=== PATIENT | female | born 1985 ===

== ENCOUNTER 2021-01-03 01:12 | Emergency (ER) | payer MEDICAID ==
[~2021-01-03] VITALS: Ht 165.1 cm; Wt 117.2 kg
--- NOTE | 2021-01-03 01:20 | NUR ---
EKG DONE IN TRIAGE.
--- NOTE | 2021-01-03 01:31 | NUR ---
pt presents to ed with c/o SOB and cough for a couple days. pt denies CP. pt a&o, resps even and rapid, nadn.
--- NOTE | 2021-01-03 01:37 | NUR ---
covid test swabbed and walked to lab at this time.
--- NOTE | 2021-01-03 02:09 | NUR ---
PIV placed, all monitors attached, vinin.
--- NOTE | 2021-01-03 02:24 | NUR ---
REPORT RECIEVED FROM [facility]
[2021-01-03 02:38] LABS: ALBUMIN 1.9 g/dL (3.4-5.0); ANION GAP 8 mmol/L (5-15); CALCIUM 7.8 mg/dL (8.5-10.1); CHLORIDE 111 mmol/L (98-107); CREATININE 1.16 mg/dL (0.55-1.02)
--- NOTE | 2021-01-03 02:44 | NUR ---
[facility] NEG. RADIOLOGY NOTIFIED.
--- NOTE | 2021-01-03 02:48 | NUR ---
PATIENT REFUSING TO HAVE CBC RE-DRAWN. PROVIDER NOTIFIED. PATIENT SITTING ON [place]. JETHRO AT THIS TIME.
--- NOTE | 2021-01-03 02:49 | NUR ---
PATIENT TO CT.
[2021-01-03] MEDS ORDERED: OMNIPAQUE 350 MG/ML, 75ML BOTTLE ONE (03:03)
[2021-01-03 03:17] LABS: BASOPHILS % (AUTO) 2 % (0-1); EOSINOPHILS % (AUTO) 0 % (1-7); LYMPHOCYTES % (AUTO) 27 % (22-44); MEAN CORPUSCULAR HEMOGLOBIN 25.7 pg (27.0-34.8); MEAN CORPUSCULAR HGB CONC 31.4 g/dL (32.4-35.8); MONOCYTES % (AUTO) 7 % (2-9); NEUTROPHILS % (AUTO) 64 % (42-75); PLATELET COUNT 258 x10^3/uL (130-400); RED BLOOD COUNT 5.66 x10^6/uL (3.82-5.3); RED CELL DISTRIBUTION WIDTH 17.7 % (9.6-15.2)
--- NOTE | 2021-01-03 03:46 | NUR ---
PATIENT SITTING ON JETHRO JONES AT THIS TIME, VSS, WILL CONTINUE TO MONITOR.
[2021-01-03 05:21] VITALS: BP 172/118
--- NOTE | 2021-01-03 05:22 | NUR ---
Pt demanded RN to remove R PIV. Pt stated "Take it out, it doesnt matter, I am going to leave anyway." Vital signs updated, Primary RN aware, Dr. Kaur updated [id number] on interaction with patient.
--- NOTE | 2021-01-03 05:48 | NUR ---
Patient given discharge instructions and they have confirmed that they understand the instructions. Patient ambulatory with steady gait. NAD, all questions answered appropriately, denies additional needs at this time. No personal belongings left in room after discharge.
[2021-01-03 05:52] LABS: TROPONIN I 0.057 ng/mL (0.000-0.045)
[2021-01-08] MEDS ORDERED: APIX5TAB PO (12:21)
== END 2021-01-03 05:50 | disposition home or self-care (01) ==
LOC: ED 05:40
DX: J90 Pleural effusion, not elsewhere classified (principal); R06.00 Dyspnea, unspecified; J18.9 Pneumonia, unspecified organism; F17.210 Nicotine dependence, cigarettes, uncomplicated; R00.0 Tachycardia, unspecified; I11.0 Hypertensive heart disease with heart failure; I50.9 Heart failure, unspecified; E11.22 Type 2 diabetes mellitus with diabetic chronic kidney disease
CPT/HCPCS: 36415; 71045; 71275; 80048; 82040; 83880; 84484; 84703; 85025; 93005; Q9967; U0005; U0003

== ENCOUNTER 2021-01-03 14:53 | Inpatient (IN) | payer MEDICAID ==
[~2021-01-03] VITALS: Ht 165.1 cm; Wt 104.7 kg
--- NOTE | 2021-01-03 15:05 | NUR ---
application integrator: EKG done in triage
--- NOTE | 2021-01-03 15:49 | NUR ---
pt c/o SOB. pt was seen here this AM for same and was to be admitted but left AMA. now sx worse.
[2021-01-03] MEDS ORDERED: FUROSEMIDE 40 MG/4 ML ONE (16:44)
[2021-01-03 16:52] LABS: BASOPHILS % (AUTO) 1 % (0-1); EOSINOPHILS % (AUTO) 1 % (1-7); LYMPHOCYTES % (AUTO) 32 % (22-44); MEAN CORPUSCULAR HGB CONC 31.8 g/dL (32.4-35.8); MEAN PLATELET VOLUME 8.2 fL (7.4-10.4); MONOCYTES % (AUTO) 11 % (2-9); NEUTROPHILS % (AUTO) 55 % (42-75); PLATELET COUNT 252 x10^3/uL (130-400); RED BLOOD COUNT 5.68 x10^6/uL (3.82-5.3); RED CELL DISTRIBUTION WIDTH 17.6 % (9.6-15.2)
[2021-01-03] MEDS ORDERED: FUROSEMIDE 40 MG/4 ML IV ONE (17:00)
[2021-01-03 17:01] LABS: ALBUMIN 2.1 g/dL (3.4-5.0); ANION GAP 5 mmol/L (5-15); CALCIUM 8.3 mg/dL (8.5-10.1); CHLORIDE 111 mmol/L (98-107); CREATININE 1.08 mg/dL (0.55-1.02)
[2021-01-03 17:05] LABS: TROPONIN I 0.048 ng/mL (0.000-0.045)
--- NOTE | 2021-01-03 17:06 | NUR ---
PIV placed, labs drawn, pt medicated per order. pt aware of poc to admit
--- NOTE | 2021-01-03 18:13 | NUR ---
pt ambulatory to restroom with steady gait, nadn.
[2021-01-03] MEDS ORDERED: ENOXAPARIN 40 MG/0.4 ML SQ SCH (19:45)
[2021-01-03] MEDS ORDERED: DOCUSATE 100 MG CAPSULE PO PRN (19:45)
--- NOTE | 2021-01-03 20:14 | NUR ---
pt taken up to floor at this time
[2021-01-03 20:28] VITALS: BP 150/113
[2021-01-03] MEDS ORDERED: MELATONIN 5 MG TABLET PO PRN (21:00)
[2021-01-03] MEDS: NICOTINE 21 MG/24 HR PATCH.TD24 TD SCH (22:38)
[2021-01-04 01:37] VITALS: BP 150/109
[2021-01-04 05:59] LABS: BASOPHILS % (AUTO) 1 % (0-1); EOSINOPHILS % (AUTO) 1 % (1-7); LYMPHOCYTES % (AUTO) 36 % (22-44); MEAN CORPUSCULAR HEMOGLOBIN 26.2 pg (27.0-34.8); MEAN CORPUSCULAR HGB CONC 31.9 g/dL (32.4-35.8); MEAN PLATELET VOLUME 8.3 fL (7.4-10.4); MONOCYTES % (AUTO) 8 % (2-9); NEUTROPHILS % (AUTO) 54 % (42-75); PLATELET COUNT 237 x10^3/uL (130-400); RED CELL DISTRIBUTION WIDTH 17.9 % (9.6-15.2)
[2021-01-04 06:12] LABS: ALBUMIN 1.9 g/dL (3.4-5.0); ANION GAP 7 mmol/L (5-15); CALCIUM 8.1 mg/dL (8.5-10.1); CHLORIDE 111 mmol/L (98-107)
[2021-01-04 06:21] LABS: ALANINE AMINOTRANSFERASE 193 U/L (12-78); ALKALINE PHOSPHATASE 151 U/L (45-117); BILIRUBIN,TOTAL 1.2 mg/dL (0.2-1.0); CHOLESTEROL, TOTAL 93 mg/dL (140-239); CREATININE 1.01 mg/dL (0.55-1.02); HDL CHOL % 33 % (28-40); HDL CHOLESTEROL (DIRECT) 31 mg/dL (40-60); LDL CHOLESTEROL,CALCULATED 47 mg/dL (54-169); LDL/HDL RATIO 1.5 (0.5-3.0); TOTAL PROTEIN 5.9 g/dL (6.4-8.2); TRIGLYCERIDES 77 mg/dL (50-200); TROPONIN I 0.038 ng/mL (0.000-0.045); VLDL CHOLESTEROL 15 mg/dL (0-25)
[2021-01-04 07:55] VITALS: BP 158/126
[2021-01-04] MEDS: FUROSEMIDE 40 MG/4 ML IV SCH ×2 (08:04→17:37)
[2021-01-04] MEDS ORDERED: MAGNESIUM SULFATE PMX 2GM/50ML 50 ML IV ONE (12:00)
[2021-01-04] MEDS ORDERED: POTASSIUM CHLORIDE 20 MEQ TAB.ER.PRT PO ONE (12:00)
[2021-01-04 12:57] VITALS: BP 168/109
[2021-01-04] MEDS: LISINOPRIL 10 MG TABLET PO SCH (13:02)
[2021-01-04 17:38] VITALS: BP 146/106
[2021-01-04] MEDS: ENOXAPARIN 40 MG/0.4 ML SQ SCH (21:09)
[2021-01-04 21:10] VITALS: BP 136/93
[2021-01-05 01:43] VITALS: BP 150/99
[2021-01-05 05:52] LABS: BASOPHILS % (AUTO) 0 % (0-1); EOSINOPHILS % (AUTO) 1 % (1-7); LYMPHOCYTES % (AUTO) 40 % (22-44); MEAN CORPUSCULAR HGB CONC 31.9 g/dL (32.4-35.8); MEAN PLATELET VOLUME 8.1 fL (7.4-10.4); MONOCYTES % (AUTO) 8 % (2-9); NEUTROPHILS % (AUTO) 51 % (42-75); PLATELET COUNT 224 x10^3/uL (130-400); RED BLOOD COUNT 5.77 x10^6/uL (3.82-5.3); RED CELL DISTRIBUTION WIDTH 17.4 % (9.6-15.2)
[2021-01-05 06:00] LABS: ANION GAP 8 mmol/L (5-15); CALCIUM 8.6 mg/dL (8.5-10.1); CHLORIDE 108 mmol/L (98-107)
[2021-01-05 06:04] LABS: CREATININE 1.02 mg/dL (0.55-1.02)
[2021-01-05] MEDS: NICOTINE 21 MG/24 HR PATCH.TD24 TD SCH ×2 (08:49→10:38)
[2021-01-05] MEDS: LISINOPRIL 10 MG TABLET PO SCH (08:49)
[2021-01-05] MEDS: FUROSEMIDE 40 MG/4 ML IV SCH ×2 (08:49→17:52)
[2021-01-05] MEDS: ENOXAPARIN 40 MG/0.4 ML SQ SCH (08:50)
[2021-01-05 08:54] VITALS: BP 150/93
[2021-01-05 14:00] VITALS: BP 144/91
[2021-01-05] MEDS: CARVEDILOL 3.125 MG TABLET PO SCH ×2 (15:36→20:45)
[2021-01-05] MEDS: APIXABAN 5 MG TABLET PO SCH ×2 (15:36→20:56)
[2021-01-05] MEDS ORDERED: ACETAMINOPHEN 325 MG TABLET ONE (17:50)
[2021-01-05] MEDS ORDERED: ACETAMINOPHEN 325 MG TABLET PO PRN (18:00)
[2021-01-05 18:57] VITALS: BP 126/82
[2021-01-06 00:47] VITALS: BP 140/89
[2021-01-06] MEDS: CARVEDILOL 3.125 MG TABLET PO SCH (06:04)
[2021-01-06 06:18] LABS: BASOPHILS % (AUTO) 0 % (0-1); EOSINOPHILS % (AUTO) 3 % (1-7); LYMPHOCYTES % (AUTO) 33 % (22-44); MEAN CORPUSCULAR HEMOGLOBIN 25.8 pg (27.0-34.8); MEAN CORPUSCULAR HGB CONC 31.7 g/dL (32.4-35.8); MEAN PLATELET VOLUME 7.9 fL (7.4-10.4); MONOCYTES % (AUTO) 8 % (2-9); NEUTROPHILS % (AUTO) 56 % (42-75); PLATELET COUNT 251 x10^3/uL (130-400); RED BLOOD COUNT 5.58 x10^6/uL (3.82-5.3); RED CELL DISTRIBUTION WIDTH 17.6 % (9.6-15.2)
[2021-01-06 06:25] LABS: CALCIUM 8.6 mg/dL (8.5-10.1); CHLORIDE 106 mmol/L (98-107)
[2021-01-06 06:28] LABS: ANION GAP 7 mmol/L (5-15); CREATININE 0.97 mg/dL (0.55-1.02)
[2021-01-06 08:46] VITALS: BP 140/94
[2021-01-06] MEDS: NICOTINE 21 MG/24 HR PATCH.TD24 TD SCH (09:00)
[2021-01-06] MEDS: APIXABAN 5 MG TABLET PO SCH ×2 (09:52→21:05)
[2021-01-06] MEDS: FUROSEMIDE 40 MG/4 ML IV SCH ×2 (09:53→17:44)
[2021-01-06] MEDS: POTASSIUM CHLORIDE 20 MEQ TAB.ER.PRT PO SCH ×2 (09:53→17:44)
[2021-01-06] MEDS: LISINOPRIL 10 MG TABLET PO SCH (09:53)
[2021-01-06 13:27] VITALS: BP 123/85
[2021-01-06] MEDS: CARVEDILOL 6.25 MG TABLET PO SCH (17:44)
[2021-01-06 19:03] VITALS: BP 146/94
[2021-01-07 00:58] VITALS: BP 129/86
[2021-01-07 04:59] LABS: BASOPHILS % (AUTO) 0 % (0-1); EOSINOPHILS % (AUTO) 3 % (1-7); LYMPHOCYTES % (AUTO) 33 % (22-44); MEAN CORPUSCULAR HEMOGLOBIN 26.4 pg (27.0-34.8); MEAN CORPUSCULAR HGB CONC 32.4 g/dL (32.4-35.8); MEAN PLATELET VOLUME 8.2 fL (7.4-10.4); MONOCYTES % (AUTO) 9 % (2-9); NEUTROPHILS % (AUTO) 56 % (42-75); PLATELET COUNT 265 x10^3/uL (130-400); RED BLOOD COUNT 5.85 x10^6/uL (3.82-5.3); RED CELL DISTRIBUTION WIDTH 17.5 % (9.6-15.2)
[2021-01-07 05:09] LABS: ANION GAP 6 mmol/L (5-15); CALCIUM 9.1 mg/dL (8.5-10.1); CHLORIDE 109 mmol/L (98-107); CREATININE 0.96 mg/dL (0.55-1.02)
[2021-01-07] MEDS: CARVEDILOL 6.25 MG TABLET PO SCH (06:04)
[2021-01-07 06:58] VITALS: BP 137/85
[2021-01-07] MEDS ORDERED: CARVEDILOL 6.25 MG TABLET PO ONE (07:30)
[2021-01-07] MEDS ORDERED: APIX5TAB PO ×2 (07:34)
[2021-01-07] MEDS ORDERED: FURO40TA6 PO (07:38)
[2021-01-07] MEDS ORDERED: CARV12.52 PO (07:38)
[2021-01-07] MEDS ORDERED: LISI-167 PO (07:38)
[2021-01-07] MEDS ORDERED: POTA20TA6 PO (07:38)
[2021-01-07] MEDS ORDERED: NICO-587 TD (07:39)
[2021-01-07] MEDS ORDERED: FUROSEMIDE 40 MG TABLET PO SCH (08:00)
[2021-01-07] MEDS: LISINOPRIL 10 MG TABLET PO SCH (08:58)
[2021-01-07] MEDS: APIXABAN 5 MG TABLET PO SCH (08:58)
[2021-01-07] MEDS: POTASSIUM CHLORIDE 20 MEQ TAB.ER.PRT PO SCH (08:58)
[2021-01-07] MEDS: NICOTINE 21 MG/24 HR PATCH.TD24 TD SCH (08:59)
[2021-01-07] MEDS ORDERED: REGADENOSON 0.4 MG/5 ML SYRINGE ONE (10:01)
[2021-01-07] MEDS ORDERED: CARVEDILOL 12.5 MG TABLET PO SCH (18:00)
[2021-01-08] MEDS ORDERED: APIX5TAB PO (12:21)
== END 2021-01-07 12:42 | disposition home or self-care (01) | DRG 194 ==
LOC: ED 15:23 → EDIP 18:13 → 5SO 20:10
PROVIDERS: ADMIT Internal Medicine; ATTEND Internal Medicine
DX: I11.0 Hypertensive heart disease with heart failure (principal); E43 Unspecified severe protein-calorie malnutrition; I42.8 Other cardiomyopathies; I51.3 Intracardiac thrombosis, not elsewhere classified; E11.9 Type 2 diabetes mellitus without complications; I50.23 Acute on chronic systolic (congestive) heart failure; E66.01 Morbid (severe) obesity due to excess calories; G47.33 Obstructive sleep apnea (adult) (pediatric); F17.200 Nicotine dependence, unspecified, uncomplicated; Z68.38 Body mass index [BMI] 38.0-38.9, adult; Z86.32 Personal history of gestational diabetes; Z82.49 Family history of ischemic heart disease and other diseases of the circulatory system; Z83.3 Family history of diabetes mellitus
CPT/HCPCS: 36415; 93017; 96372; 96374; 96375; 99285; C8929; 71045; 71275; 78452; 80048; 80053; 80061; 82040; 83036; 83735; 83880; 84100; 84443; 84484; 84703; 85025; 86480; 93005; G0378; J1650; J1940; J2785; Q9957; Q9967; U0005; A9502; J3475; U0003